=== PATIENT | female | born 1985 | race Caucasian/White ===

== ENCOUNTER 2018-07-19 23:30 | Emergency (ER) | payer OTHER ==
[2018-07-19 23:37] VITALS: BP 123/81
--- NOTE | 2018-07-19 23:58 | ER Document Report ---
ED General - General Chief Complaint: Mouth Injury Stated Complaint: MOUTH INJURY Time Seen by Provider: 07/19/18 23:41 Notes: Patient is a 33-year-old female who presents emergency department after falling face first tripping over a recliner and chipping her 2 front teeth and biting her lip. She does admit to drinking tonight. According to her , the friends that were with her states she did not hit the back or side of her head. She admits to smoking, denies recreational drug use. TRAVEL OUTSIDE OF THE [place] IN LAST 30 DAYS: No - Related Data Allergies/Adverse Reactions: No Known Allergies Allergy (Unverified 07/20/18 00:20) Past Medical History - General Information source: Patient - Social History Smoking Status: Current Every Day Smoker Frequency of alcohol use: Occasional Drug Abuse: None Family History: Reviewed & Not Pertinent Review of Systems - Review of Systems Notes: REVIEW OF SYSTEMS: CONSTITUTIONAL : Denies recent illness. Denies recent unintentional weight loss. Denies fever, chills, or sweats. EENT: See HPI. Denies eye, ear, throat, discharge, or symptoms. Denies nasal or sinus congestion. CARDIOVASCULAR: Denies chest pain. RESPIRATORY: Denies shortness of breath, cough, congestion, difficulty breathing , or wheezing. GASTROINTESTINAL: Denies nausea, vomiting, and diarrhea. Denies abdominal pain. Denies constipation. GENITOURINARY: Denies difficulty urinating, burning, blood in urine, urgency or frequency. MUSCULOSKELETAL: Denies neck and back pain. Denies joint pain or swelling. SKIN: Denies rash, itchiness, or lesions HEMATOLOGIC : Denies easy bruising or bleeding. LYMPHATIC: Denies swollen, painful, enlarged glands. NEUROLOGICAL: Denies no numbness or tingling denies weakness. Denies headache. Denies altered mental status. Denies alteration in speech. PSYCHIATRIC: Denies stress, anxiety, alteration in sleep patterns, or depression. All other systems reviewed and negative. Physical Exam - Vital signs Vitals: Temp Pulse Resp BP Pulse Ox 97.7 F 114 H 18 123/81 97 07/19/18 23:33 07/19/18 23:33 07/19/18 23:33 07/19/18 23:33 07/19/18 23:33 - Notes Notes: PHYSICAL EXAMINATION: GENERAL: Appears well, healthy, well-nourished, no acute distress. HEAD: Normocephalic, atraumatic. EYES: PERRL, conjunctiva normal, all extraocular movements intact, sclera nonicteric ENT; MOUTH: Moist mucous membranes. Lip avulsion. Incisors 8 and 9 are chipped. NECK: Supple, no noticeable swelling, redness, rash. Normal range of motion. LUNGS: Equal breath sounds bilaterally and clear to auscultation. No wheezes rales or rhonchi. CARDIOVASCULAR: S1-S2, regular rate, regular rhythm. Radial pulses 2+, normal. ABDOMEN: Normoactive bowel sounds. Soft, nontender, no guarding, no rebound tenderness, and no masses palpated. EXTREMITIES: Normal strength and range of motion, no pitting or edema. No cyanosis. NEUROLOGICAL: Moves all extremities upon command. Strength 5/5 in all extremities. PSYCH: Normal mood, normal affect. SKIN: Warm, dry. No rash, lesions, ulcerations noted. Normal skin turgor. Course - Re-evaluation Re-evalutation: 07/20/18 00:00 Since patient has been under the influence of alcohol tonight, she will be sent for a CT of the head and C-spine to rule out an intracranial bleed or C-spine injury. Her lip has an avulsion with a small bead of skin still attached, but it is unable to be reattached. I will numb the area and cut the small beaded skin because it is unintelligible. 07/20/18 00:[address] of her head and C-spine are both negative. I have discussed the findings with the patient and her . She was actually able to pull the bead of skin off her lip. She is stable for discharge. Verbal discharge instructions were given to her and her . They verbalized understanding. 07/20/18 01:15 I was informed by the nurse that the patient was unable to wait for her discharge instructions. Patient left without paperwork. - Vital Signs Vital signs: Temp Pulse Resp BP Pulse Ox 97.7 F 114 H 18 123/81 97 07/19/18 23:33 07/19/18 23:33 07/19/18 23:33 07/19/18 23:33 07/19/18 23:33 Discharge - Discharge Clinical Impression: Skin avulsion Chipped tooth Qualifiers: Encounter type: initial encounter Fracture type: closed Qualified Code(s): S02.5XXA - Fracture of tooth (traumatic), initial encounter for closed fracture Disposition: HOME, SELF-CARE Additional Instructions: Your seen today in the emergency department for a lip injury, along with chipped front teeth. You can follow up with your dentist about your teeth. They will decide what needs to be done to fix them. The injury to your lip will heal on its own. If you develop a fever, have a severe headache, or have any symptoms that are worrisome to you, please return to the emergency department.
--- NOTE | 2018-07-20 00:33 | RADIOLOGY REPORT (SQ) ---
EXAM DESCRIPTION: CT HEAD WITHOUT IV CONTRAST COMPLETED DATE/TME: 07/19/2018 23:58 CLINICAL HISTORY: 33 years, Female, trauma COMPARISON: None. TECHNIQUE: Images stored on PACS. All CT scanners at this facility use dose modulation, iterative reconstruction, and/or weight based dosing when appropriate to reduce radiation dose to as low as reasonably achievable (ALARA). [facility]: Dose Right [facility]: CareDose [facility]: Dose Right [facility]: Teradose 4D [facility]: [employer] LIMITATIONS: None. FINDINGS: No skull fracture. No intracranial bleed. No evidence of acute infarct. No evidence of mass or hydrocephalus. There is maxillary and ethmoid sinus disease. IMPRESSION: No skull fracture. No intracranial bleed. Sinus disease. TECHNICAL DOCUMENTATION: Quality ID # 436: Final reports with documentation of one or more dose reduction techniques (e.g., Automated exposure control, adjustment of the mA and/or kV according to patient size, use of iterative reconstruction technique) 2010 [employer]- All Rights Reserved
--- NOTE | 2018-07-20 00:34 | RADIOLOGY REPORT (SQ) ---
EXAM DESCRIPTION: CT CERVICAL SPINE WITHOUT IV CONTRAST COMPLETED DATE/TME: 07/19/2018 23:59 CLINICAL HISTORY: 33 years, Female, trauma COMPARISON: None. TECHNIQUE: Axial CT images of the cervical spine were obtained without contrast. DLP 298 Images stored on PACS. All CT scanners at this facility use dose modulation, iterative reconstruction, and/or weight based dosing when appropriate to reduce radiation dose to as low as reasonably achievable (ALARA). [facility]: Dose Right [facility]: CareDose [facility]: Dose Right [facility]: Teradose 4D [facility]: [employer] LIMITATIONS: None. FINDINGS: The alignment of the cervical spine is satisfactory. There is no acute fracture or subluxation. The vertebral heights and disc spaces are maintained. The craniocervical junction is intact. The prevertebral soft tissues are normal. The neural foramen and spinal canal are widely patent. The visualized lung apices are clear. IMPRESSION: No acute fracture or subluxation of the cervical spine TECHNICAL DOCUMENTATION: Quality ID # 436: Final reports with documentation of one or more dose reduction techniques (e.g., Automated exposure control, adjustment of the mA and/or kV according to patient size, use of iterative reconstruction technique) 2010 [employer]- All Rights Reserved
== END 2018-07-20 01:15 | disposition home or self-care (01) ==
LOC: ER 23:30
DX: S02.5XXA Fracture of tooth (traumatic), initial encounter for closed fracture (principal); S01.551A Open bite of lip, initial encounter; W01.0XXA Fall on same level from slipping, tripping and stumbling without subsequent striking against object, initial encounter; F17.200 Nicotine dependence, unspecified, uncomplicated
CPT/HCPCS: 70450; 72125; 99283